=== PATIENT | male | born 1965 | race Caucasian/White ===

== ENCOUNTER 2023-08-27 07:27 | Inpatient (IN) | payer OTHER ==
[~2023-08-27] VITALS: Ht 175.3 cm; Wt 75.0 kg
[2023-08-27 08:14] LABS: BASOPHILS % (AUTO) 0.5 % (0.0-2.0); EOSINOPHILS % (AUTO) 0 % (1.0-6.0); HEMATOCRIT 47.3 % (41-53); HEMOGLOBIN 16.3 g/dL (13.5-17.5); LYMPHOCYTES # (AUTO) 0.8 K/uL (1.0-4.8); LYMPHOCYTES % (AUTO) 9.2 % (22.0-44.0); MEAN CORPUSCULAR HEMOGLOBIN 28.9 pg (26.0-34.0); MEAN CORPUSCULAR HGB CONC 34.5 G/dL (31.0-37.0); MEAN CORPUSCULAR VOLUME 84 fL (80-100); MONOCYTES # (AUTO) 0.3 K/uL (0.1-1.0); MONOCYTES % (AUTO) 3.3 % (2.0-9.0); NEUTROPHILS # (AUTO) 7.6 K/uL (1.8-7.7); PLATELET COUNT (AUTO) 247 K/uL (150-450); RED BLOOD CELL COUNT(AUTO) 5.66 MIL/uL (4.50-5.90); WHITE BLOOD COUNT (AUTO) 8.7 K/uL (4.5-11.0)
[2023-08-27 08:25] LABS: ANION GAP 13 mmol/L (8-16); CALCIUM, TOTAL 9.7 mg/dL (8.8-10.5); CARBON DIOXIDE 25 mmol/L (22-29); CHLORIDE 94 mmol/L (98-107); CREATININE 0.92 mg/dL (0.60-1.30); GLOMERULAR FILTR. RATE CALC > 60 mL/min (>60); GLUCOSE,RANDOM 148 mg/dL (70-110); POTASSIUM 3.4 mmol/L (3.5-5.1); SODIUM SERUM 132 mmol/L (136-145); UREA NITROGEN, BLOOD 12 mg/dL (7-18)
[2023-08-27] MEDS ORDERED: SODIUM CHLORIDE 0.9% 1,000 ML IV ONE ×2 (08:30→09:00)
[2023-08-27] MEDS ORDERED: CloNIDine HCL 0.1 MG TABLET PO ONE (08:30)
[2023-08-27 08:31] LABS: TROPONIN I-HIGH SENSITIVITY 47 ng/L (<76)
[2023-08-27 08:32] LABS: B-TYPE NATRIURETIC PEPTIDE 57 pg/mL (0-100)
[2023-08-27 08:34] LABS: ALANINE AMINOTRANSFERASE 27 U/L (12-78); ALBUMIN 4.4 g/dL (3.4-5.0); ALKALINE PHOSPHATASE 100 U/L (46-116); ASPARTATE AMINOTRANSFERASE 29 U/L (15-37); BILIRUBIN,TOTAL 0.9 mg/dL (0.1-1.0); CREATINE KINASE, TOTAL ONLY 692 U/L (39-308); TOTAL PROTEIN, SERUM 8.3 g/dL (6.4-8.2)
[2023-08-27 08:39] LABS: INR 1.1 (0.9-1.1); PROTHROMBIN TIME 11.4 SEC (9.4-11.6)
[2023-08-27] MEDS ORDERED: POTASSIUM CHL 10 MEQ/WATER 50 ML IV PRN (09:00)
[2023-08-27] MEDS ORDERED: LORazepam 2 MG/ML VIAL IVP PRN (09:00)
[2023-08-27] MEDS ORDERED: ZOLPIDEM TARTRATE 5 MG TABLET PO PRN (09:00)
[2023-08-27] MEDS ORDERED: MAGNESIUM HYDROXIDE SUSPENSION 30 ML UDCUP PO PRN (09:00)
[2023-08-27] MEDS: MULTIVITAMINS WITH MINERALS, THERAPEUTIC TABLET PO SCH (09:47)
[2023-08-27] MEDS: FAMOTIDINE 20 MG TABLET PO SCH ×2 (09:47→20:14)
[2023-08-27 09:54] LABS: APPEARANCE,URINE CLEAR (CLEAR); BILIRUBIN,URINE NEGATIVE (NEGATIVE); COLOR,URINE LIGHT YELLOW (YELLOW); GLUCOSE, URINE (UA) NEGATIVE (NEGATIVE); KETONES,URINE 80-100 mg/dL (NEGATIVE); LEUKOCYTE ESTERASE ,URINE NEGATIVE (NEGATIVE); NITRATE,URINE NEGATIVE (NEGATIVE); OCCULT BLOOD,URINE MODERATE (NEGATIVE); PROTEIN,URINE TRACE mg/dL (NEGATIVE); SPECIFIC GRAVITIY, URINE 1.013 (1.003-1.030); UROBILINOGEN,URINE <=1.0 mg/dL (<=1.0)
[2023-08-27 09:58] LABS: AMPHET/METH SCREEN,URINE POSITIVE (NEGATIVE); BARBITURATE SCREEN, URINE NEGATIVE (NEGATIVE); BENZODIAZEPINES SCREEN,URINE NEGATIVE (NEGATIVE); CANNABINOID SCREEN,URINE POSITIVE (NEGATIVE); COCAINE SCREEN,URINE NEGATIVE (NEGATIVE); METHADONE SCREEN, URINE NEGATIVE (NEGATIVE); OPIATE SCREEN,URINE NEGATIVE (NEGATIVE); PHENCYCLIDINE SCREEN,URINE NEGATIVE (NEGATIVE)
[2023-08-27 09:59] LABS: ALCOHOL, URINE DRUG SCREEN NEGATIVE (NEGATIVE)
[2023-08-27 10:07] LABS: BACTERIA,URINE None Seen /HPF (None Seen); SQUAMOUS EPITHELIAL CELL,UR Few /LPF (None Seen); WBC,URINE None Seen /HPF (0-5)
[2023-08-27 11:22] LABS: COVID AG,FIA SOURCE NASAL SWAB
[2023-08-27 11:52] LABS: SARS-COV2 (COVID) ANTIGEN,FIA Negative (Negative)
[2023-08-27] MEDS: ACETAMINOPHEN 325 MG TABLET PO PRN (15:19)
[2023-08-27] MEDS: HEPARIN SODIUM,PORCINE 5,000 UNITS/ML VIAL SQ SCH ×2 (16:46→23:44)
[2023-08-27] MEDS: POTASSIUM CHLORIDE 20 MEQ ER TABLET PO PRN (16:46)
[2023-08-27] MEDS: ONDANSETRON HCL 4 MG/2 ML VIAL IVP PRN (16:46)
[2023-08-27 19:21] VITALS: BP 151/96; PULSE 64; RESP 20; TEMP 99.7
[2023-08-27 19:32] VITALS: BP 160/102; PULSE 60; RESP 20; TEMP 99.9
[2023-08-27 19:33] VITALS: BP 165/102
[2023-08-27 19:34] VITALS: BP 166/101
[2023-08-27 21:53] VITALS: BP 145/86; PULSE 83; RESP 18; TEMP 98.2
[2023-08-28 05:00] VITALS: BP 132/94; PULSE 67; RESP 18; TEMP 100.1
[2023-08-28] MEDS: ACETAMINOPHEN 325 MG TABLET PO PRN ×2 (05:21→08:39)
[2023-08-28 06:19] LABS: ANION GAP 13 mmol/L (8-16); CALCIUM, TOTAL 9.5 mg/dL (8.8-10.5); CARBON DIOXIDE 28 mmol/L (22-29); CHLORIDE 93 mmol/L (98-107); GLOMERULAR FILTR. RATE CALC > 60 mL/min (>60); GLUCOSE,RANDOM 123 mg/dL (70-110); POTASSIUM 3.5 mmol/L (3.5-5.1); SODIUM SERUM 134 mmol/L (136-145); UREA NITROGEN, BLOOD 11 mg/dL (7-18)
[2023-08-28 08:07] VITALS: BP 132/86; PULSE 72; RESP 20; TEMP 102.2
[2023-08-28] MEDS: HEPARIN SODIUM,PORCINE 5,000 UNITS/ML VIAL SQ SCH ×3 (08:39→23:23)
[2023-08-28] MEDS: MULTIVITAMINS WITH MINERALS, THERAPEUTIC TABLET PO SCH (08:39)
[2023-08-28] MEDS: FAMOTIDINE 20 MG TABLET PO SCH ×2 (08:39→20:02)
[2023-08-28] MEDS ORDERED: MAG HYDROX/AL HYDROX/SIMETH ES 30 ML SUSPENSION UDCUP PO PRN (11:15)
[2023-08-28] MEDS ORDERED: DICYCLOMINE HCL 10 MG CAPSULE PO PRN (11:15)
[2023-08-28] MEDS ORDERED: PROMETHAZINE HCL 25 MG TABLET PO PRN (11:15)
[2023-08-28] MEDS ORDERED: BACLOFEN 10 MG TABLET PO PRN (11:15)
[2023-08-28] MEDS ORDERED: TraZODone HCL 50 MG TABLET PO PRN (11:15)
[2023-08-28] MEDS ORDERED: CloNIDine HCL 0.1 MG TABLET PO PRN (11:15)
[2023-08-28] MEDS ORDERED: HydrOXYzine PAMOATE 50 MG CAPSULE PO PRN (11:15)
[2023-08-28] MEDS ORDERED: ACETAMINOPHEN 325 MG TABLET PO PRN (11:15)
[2023-08-28] MEDS ORDERED: IBUPROFEN 600 MG TABLET PO PRN (11:15)
[2023-08-28] MEDS ORDERED: LOPERAMIDE HCL 2 MG/15 ML SUSPENSION UDCUP PO PRN (11:15)
[2023-08-28] MEDS ORDERED: CloNIDine 0.1 MG/24 HOUR PATCH TD ONE (11:15)
[2023-08-28] MEDS: ONDANSETRON HCL 4 MG/2 ML VIAL IVP PRN (11:28)
[2023-08-28 11:30] VITALS: BP 130/102; PULSE 75; RESP 20; TEMP 99.5; O2SAT 98
[2023-08-28 11:37] VITALS: BP 130/102; PULSE 75; RESP 20; TEMP 99.5
[2023-08-28] MEDS: SODIUM CHLORIDE 0.45% 1,000 ML IV SCH (12:20)
[2023-08-28] MEDS ORDERED: SODIUM CHLORIDE 0.9% 1,000 ML ONE (12:21)
[2023-08-28 20:13] VITALS: BP 118/87; PULSE 76; RESP 18; TEMP 99.2
[2023-08-29] MEDS: SODIUM CHLORIDE 0.45% 1,000 ML IV SCH ×2 (00:31→14:06)
[2023-08-29 04:00] VITALS: BP 129/104; PULSE 84; RESP 19; TEMP 98.3
[2023-08-29 07:55] VITALS: BP 133/98; PULSE 84; RESP 20; TEMP 98.4
[2023-08-29] MEDS: FAMOTIDINE 20 MG TABLET PO SCH ×2 (08:40→20:48)
[2023-08-29] MEDS: HEPARIN SODIUM,PORCINE 5,000 UNITS/ML VIAL SQ SCH ×3 (08:40→23:19)
[2023-08-29] MEDS: MULTIVITAMINS WITH MINERALS, THERAPEUTIC TABLET PO SCH (08:40)
[2023-08-29 15:05] VITALS: BP 108/70; PULSE 84; RESP 18; TEMP 98.1
[2023-08-29 19:43] LABS: BASOPHILS % (AUTO) 0.4 % (0.0-2.0); EOSINOPHILS % (AUTO) 0.1 % (1.0-6.0); HEMATOCRIT 51.6 % (41-53); HEMOGLOBIN 17.4 g/dL (13.5-17.5); LYMPHOCYTES # (AUTO) 1.9 K/uL (1.0-4.8); LYMPHOCYTES % (AUTO) 17.4 % (22.0-44.0); MEAN CORPUSCULAR HEMOGLOBIN 28.4 pg (26.0-34.0); MEAN CORPUSCULAR HGB CONC 33.7 G/dL (31.0-37.0); MEAN CORPUSCULAR VOLUME 84 fL (80-100); MONOCYTES # (AUTO) 0.9 K/uL (0.1-1.0); MONOCYTES % (AUTO) 8.3 % (2.0-9.0); NEUTROPHILS # (AUTO) 8.2 K/uL (1.8-7.7); NEUTROPHILS % (AUTO) 73.8 % (40.0-70.0); PLATELET COUNT (AUTO) 258 K/uL (150-450); RED BLOOD CELL COUNT(AUTO) 6.14 MIL/uL (4.50-5.90); RED CELL DISTRIBUTION WIDTH 13.8 % (11.5-14.5); WHITE BLOOD COUNT (AUTO) 11.1 K/uL (4.5-11.0)
[2023-08-29 19:44] VITALS: BP 118/89; PULSE 69; RESP 18; TEMP 99.1
[2023-08-29 19:58] LABS: ANION GAP 7 mmol/L (8-16); CARBON DIOXIDE 29 mmol/L (22-29); CHLORIDE 99 mmol/L (98-107); GLUCOSE,RANDOM 104 mg/dL (70-110); POTASSIUM 3.4 mmol/L (3.5-5.1); SODIUM SERUM 135 mmol/L (136-145); UREA NITROGEN, BLOOD 21 mg/dL (7-18)
[2023-08-29 20:10] LABS: ALANINE AMINOTRANSFERASE 32 U/L (12-78); ALBUMIN 3.5 g/dL (3.4-5.0); ALKALINE PHOSPHATASE 85 U/L (46-116); BILIRUBIN,TOTAL 0.5 mg/dL (0.1-1.0); CALCIUM, TOTAL 8.9 mg/dL (8.8-10.5); CREATININE 1.16 mg/dL (0.60-1.30); GLOMERULAR FILTR. RATE CALC > 60 mL/min (>60); TOTAL PROTEIN, SERUM 7.2 g/dL (6.4-8.2)
[2023-08-29 20:26] LABS: ASPARTATE AMINOTRANSFERASE 22 U/L (15-37)
[2023-08-29] MEDS: POTASSIUM CHLORIDE 20 MEQ ER TABLET PO PRN (23:42)
[2023-08-30] MEDS: SODIUM CHLORIDE 0.45% 1,000 ML IV SCH (03:27)
[2023-08-30 04:58] VITALS: BP 124/77; PULSE 68; RESP 20; TEMP 98.6
[2023-08-30] MEDS: FAMOTIDINE 20 MG TABLET PO SCH (08:00)
[2023-08-30] MEDS: MULTIVITAMINS WITH MINERALS, THERAPEUTIC TABLET PO SCH (08:00)
[2023-08-30] MEDS: HEPARIN SODIUM,PORCINE 5,000 UNITS/ML VIAL SQ SCH (08:00)
[2023-08-30 08:42] VITALS: BP 124/88; PULSE 65; RESP 19; TEMP 98.8
== END 2023-08-30 12:05 | DRG 897 ==
LOC: EMS 07:34 → 6S 08:58
PROVIDERS: ADMIT Internal Medicine; ATTEND Internal Medicine
DX: F11.93 Opioid use, unspecified with withdrawal (principal); E87.6 Hypokalemia; F32.A Depression, unspecified; R50.9 Fever, unspecified; Z20.822 Contact with and (suspected) exposure to COVID-19; F19.10 Other psychoactive substance abuse, uncomplicated
CPT/HCPCS: 71045; 80048; 80053; 80307; 81001; 82550; 83880; 84484; 85025; 85610; 85730; 87040; 93005; 99285; J1644; J2060; J2405; J7030; 36415-L1; 36415-TC